=== PATIENT | female | born 1995 | race African-American/Black ===

== ENCOUNTER 2017-03-12 17:40 | Emergency (ER) | payer MEDICAID ==
[~2017-03-12] VITALS: Ht 175.3 cm; Wt 69.0 kg
[2017-03-12] MEDS ORDERED: SODIUM CHLORIDE 0.9% 1,000 ML IV ONE (19:55)
[2017-03-12 19:57] VITALS: BP 130/85
[2017-03-12] MEDS ORDERED: ACETAMINOPHEN 500MG TABLET PO ONE (20:15)
[2017-03-12 20:30] LABS: BASOPHILS % 0.8 % (0.0-2.0); EOSINOPHILS % 1.3 % (0.0-5.0); HEMATOCRIT. 41.3 % (36.0-48.0); HEMOGLOBIN. 13.6 g/dL (12.0-16.0); LYMPHOCYTES % 30.9 % (20.0-50.0); MEAN CORPUSCULAR HEMOGLOBIN 30.3 pg (28.0-32.0); MEAN CORPUSCULAR VOLUME 91.9 fL (81.0-99.0); MEAN PLATELET VOLUME 8.8 fl (7.4-10.4); MONOCYTES % 5.7 % (2.0-8.0); NEUTROPHILS % 61.3 % (40.0-76.0); PLATELET 247 x1000/uL (130-400); RED CELL DISTRIBUTION WIDTH 13.3 % (11.6-14.6); WHITE BLOOD COUNT 9.1 x1000/uL (4.5-11.0)
[2017-03-12 20:31] LABS: CHLORIDE 102 mEq/L (98-107); INDEX HEMOLYSI 1 (1-3); INDEX ICTERIC 1 (1-4); INDEX LIPEMIC 1 (1-3)
[2017-03-12 20:36] LABS: ANION GAP 15; CARBON DIOXIDE 27 mEq/L (21-32); UREA NITROGEN BLOOD 11 mg/dL (7-21)
[2017-03-12 20:37] LABS: eGFR > 60 mL/min (>60)
[2017-03-12 21:48] LABS: B-HCG QUANTITATIVE 1546 mIU/mL (<3)
[2017-03-12 22:27] LABS: CLARITY URINE TURBID (CLEAR); COLOR URINE DARK YELLOW (YELLOW); GLUCOSE URINE NEGATIVE (NEGATIVE); KETONES URINE 3+ (NEGATIVE); LEUKOCYTE ESTERASE URINE 2+ (NEGATIVE); NITRITE URINE POSITIVE (NEGATIVE); OCCULT BLOOD URINE 3+ (NEGATIVE); PROTEIN URINE 2+ (NEGATIVE); SPECIFIC GRAVITY URINE 1.027 (1.005-1.030)
[2017-03-12 22:39] LABS: RBC URINE 50-100 /hpf (0-2); WBC URINE TNTC /hpf (0-2)
[2017-03-12 22:40] LABS: BACTERIA URINE 2+; SQUAMOUS EPITHELIAL CELL URINE 3+ /lpf (RARE/1+)
[2017-03-12] MEDS ORDERED: CEFTRIAXONE SODIUM 1 G/VIAL IM ONE (23:15)
[2017-03-12] MEDS ORDERED: LIDOCAINE HCL 1% 20ML VIAL (Pyxis) INJ MC ONE (23:15)
== END 2017-03-12 22:30 | disposition left against medical advice (07) ==
LOC: ER 20:30
DX: O23.41 Unspecified infection of urinary tract in pregnancy, first trimester (principal); N39.0 Urinary tract infection, site not specified; O99.331 Smoking (tobacco) complicating pregnancy, first trimester; F17.200 Nicotine dependence, unspecified, uncomplicated; Z3A.01 Less than 8 weeks gestation of pregnancy
CPT/HCPCS: 36415; 76830; 76856; 80048; 81001; 84702; 85025; 86850; 86900; 86901; 99285; Z7610; J7030